=== PATIENT | male | born 1955 | race Caucasian/White ===

== ENCOUNTER 2019-03-29 09:04 | Day surgery (SDC) | payer BC ==
[~2019-03-29] VITALS: Ht 190.5 cm; Wt 105.3 kg
[~2019-03-29 09:04] MED LIST: ACYC800 PO; ASPI325 PO; BENEFIBER1 EACH PO; CALCAVITD PO; CITRACAL SOFT1 EACH; CYCL10; Daily Multiple1 EACH PO; IBUP800 PO; LOSA50 PO; Prilosec20 MG PO; Zocor20 MG PO
--- NOTE | 2019-03-29 09:58 | NUR ---
03/29/19 0958 Elina Ramos 1 IV MISS IN RH BY ABDIEL UNABLE TO GET INTO VEIN 1 GOOD IV IN RAC BY ABDIEL PT TOW
== END 2019-03-29 11:26 | disposition home or self-care (01) ==
LOC: ORSCSDS 09:04
PROVIDERS: Internal Medicine Gastroenterology
PROC: 0DBK8ZX Excision of Ascending Colon, Via Natural or Artificial Opening Endoscopic, Diagnostic (ICD-10-PCS; principal; 2019-03-29 10:15)
DX: Z12.11 Encounter for screening for malignant neoplasm of colon (principal); Z86.010 Personal history of colon polyps; D12.2 Benign neoplasm of ascending colon; K57.30 Diverticulosis of large intestine without perforation or abscess without bleeding; Z87.891 Personal history of nicotine dependence
CPT/HCPCS: 88305; J2704; J7120

== ENCOUNTER 2022-12-23 10:55 | Day surgery (SDC) | payer MEDICARE ==
[~2022-12-23] VITALS: Ht 182.9 cm; Wt 108.5 kg
[2022-12-23] MEDS ORDERED: AMLO5 (11:23)
--- NOTE | 2022-12-23 12:19 | NUR ---
12/23/22 1219 BRINDA VIRGEN STUDENT NURSE, ARIANA CARDOSO ASSISTING WITH CARE
[2022-12-23 13:29] VITALS: BP 107/90
== END 2022-12-23 13:12 | disposition home or self-care (01) ==
LOC: ORSCSDS 10:55
PROVIDERS: Internal Medicine Gastroenterology
PROC: 0DB58ZX Excision of Esophagus, Via Natural or Artificial Opening Endoscopic, Diagnostic (ICD-10-PCS; principal; 2022-12-23 12:15)
DX: K74.60 Unspecified cirrhosis of liver (principal); K21.9 Gastro-esophageal reflux disease without esophagitis; K44.9 Diaphragmatic hernia without obstruction or gangrene; Z87.891 Personal history of nicotine dependence; Z79.899 Other long term (current) drug therapy
CPT/HCPCS: 88305; J2704; J7120

== ENCOUNTER → 2024-07-26 | Outpatient (CLI) | payer OTHER ==
[~2024-07-26] MED LIST changes: +AMLO5
[2024-07-26 16:40] LABS: Body Fluid Crystals POS (NEGATIVE)
[2024-07-26 16:58] LABS: BODY FLUID RBC 0.077 M/mm3 (0-0)
[2024-07-26 17:06] LABS: RBC Count, Synovial Fluid 77000 /mm3 (0-0); WBC Count, Synovial Fluid 5954 /mm3 (0-180)
[2024-07-26 17:40] LABS: Appearance, Synovial Fluid Bloody (Clear); Color, Synovial Fluid Red (None-P Yel); Lymphs, Synovial Fluid 1 % (0-15); Monocytes/Macrophages, Synovia 2 % (0-65); Neutrophils, Synovial Fluid 97 % (0-24)
== END ==
LOC: LAB SHORT 15:43 → LAB 15:43
PROVIDERS: Family Medicine
DX: M70.22 Olecranon bursitis, left elbow (principal)
CPT/HCPCS: 87070; 87075; 87205; 89051; 89060